=== PATIENT | male | born 1995 | race Two or more races ===

== ENCOUNTER 2017-04-19 00:59 | Emergency (ER) | payer BC, OTHER ==
[~2017-04-19] VITALS: Ht 172.7 cm; Wt 72.6 kg
[2017-04-19 01:04] VITALS: BP 129/69
[2017-04-19] MEDS ORDERED: ACETAMINOPHEN ES 500 MG TABLET ONE (02:52)
[2017-04-19] MEDS ORDERED: ACETAMINOPHEN 325 MG TABLET PO ONE (03:00)
== END 2017-04-19 02:58 | disposition home or self-care (01) ==
LOC: ER 01:00
DX: S46.912A Strain of unspecified muscle, fascia and tendon at shoulder and upper arm level, left arm, initial encounter (principal); S29.012A Strain of muscle and tendon of back wall of thorax, initial encounter; V43.52XA Car driver injured in collision with other type car in traffic accident, initial encounter; Y93.89 Activity, other specified; Y92.410 Unspecified street and highway as the place of occurrence of the external cause; Y99.8 Other external cause status
CPT/HCPCS: 99282; A4606; Z7610